=== PATIENT | female | born 1960 | race Caucasian/White ===

== ENCOUNTER → 2016-09-09 | Outpatient (CLI) | payer BC ==
[~2016-09-09] MED LIST: CITA10TA4 PO; IBUP-103 PO; MULTTAB58 PO
== END | disposition home or self-care (01) ==
LOC: C.PATHSPEC 15:56
PROVIDERS: ATTEND Obstetrics & Gynecology
DX: N85.8 Other specified noninflammatory disorders of uterus (principal)

== ENCOUNTER → 2016-11-08 | Outpatient (CLI) | payer BC | END | disposition home or self-care (01) | LOC: C.PAPS 14:45 | PROVIDERS: ATTEND Obstetrics & Gynecology | DX: Z01.419 Encounter for gynecological examination (general) (routine) without abnormal findings (principal); C50.919 Malignant neoplasm of unspecified site of unspecified female breast; Z79.810 Long term (current) use of selective estrogen receptor modulators (SERMs) ==

== ENCOUNTER → 2017-03-03 | Outpatient (CLI) | payer BC | END | disposition home or self-care (01) | LOC: C.PATHSPEC 11:19 | PROVIDERS: ATTEND Plastic Surgery | DX: D22.5 Melanocytic nevi of trunk (principal); L82.0 Inflamed seborrheic keratosis ==

== ENCOUNTER → 2017-04-27 | Outpatient (CLI) | payer BC ==
[2017-04-27 17:49] LABS: URINE APPEARANCE CLEAR (CLEAR); URINE BILIRUBIN NEG (NEG); URINE COLOR YELLOW; URINE EPITHELIAL CELL AUTO 20-30 /lpf (0-5); URINE NITRITE NEG (NEG); URINE PH 6.5 (4.5-7.5); URINE SPECIFIC GRAVITY 1.007 (1.000-1.030); UROBILINOGEN NEG (NEG)
[2017-04-27 17:58] LABS: MANUAL MICROSCOPIC REQUIRED? NO; REVIEW REQ? NO
== END | disposition home or self-care (01) ==
LOC: C.LABSPEC 17:19
PROVIDERS: ATTEND Physician Assistant Medical
DX: R39.9 Unspecified symptoms and signs involving the genitourinary system (principal)

== ENCOUNTER → 2017-05-12 | Outpatient (CLI) | payer BC ==
[~2017-05-12] MED LIST changes: +OPTIRAY 320 IV PRN
[2017-05-12 14:30] LABS: BASO % 0.7 %; BASO ABS # 0.03 K/uL (0-0.2); COMPLETE YES; EOS % 6.3 %; HEMATOCRIT 40.1 % (37-47); IG% 0.2 %; LYMPH % 17.7 %; LYMPH ABS # 0.78 K/uL (1.2-3.4); MEAN CELL VOLUME 87.9 fL (80-100); MEAN CORPUSCULAR HEMOGLOBIN 29.8 pg (25-34); MEAN CORPUSCULAR HGB CONC 33.9 g/dl (32-36); MEAN PLATELET VOLUME 10.2 fL (7.4-10.4); MONO % 10.7 %; NEUT % 64.4 %; PLATELET COUNT 205 K/uL (130-400); RED BLOOD COUNT 4.56 M/uL (4.2-5.4); WHITE BLOOD COUNT 4.41 K/uL (4.8-10.8)
[2017-05-12 14:56] LABS: ALB/GLOB RATIO 1.1 (0.9-2); ALKALINE PHOSPHATASE 43 U/L (45-117); ALT/SGPT 21 U/L (12-78); AST/SGOT 21 U/L (15-37); BLOOD UREA NITROGEN 10 mg/dl (7-18); BUN/CREATININE RATIO 15.8 (10-20); CALCIUM 8.4 mg/dl (8.5-10.1); CARBON DIOXIDE 27 mmol/L (21-32); CHLORIDE 109 mmol/L (98-107); CREATININE 0.64 mg/dl (0.60-1.20); GLUCOSE 82 mg/dl (70-99); POTASSIUM 3.7 mmol/L (3.5-5.1); SODIUM 142 mmol/L (136-145)
--- NOTE | 2017-05-12 16:48 | DIAGNOSTIC IMAGING REPORT ---
CT SCAN OF THE ABDOMEN AND PELVIS WITH IV CONTRAST CLINICAL HISTORY: Left lower quadrant abdominal pain. Lactase deficiency. Colonic diverticulosis. COMPARISON STUDY: Pelvic CT dated 02/11/2006. Abdominal ultrasound dated 01/25/2008. TECHNIQUE: Following the IV administration of 93 cc of Optiray 320, CT scan of the abdomen and pelvis is performed from the lung bases to the proximal femora. Images are reviewed in the axial, sagittal, and coronal planes. IV contrast was administered without complication. A dose lowering technique was utilized adhering to the principles of ALARA. CT DOSE: 386.33 mGycm FINDINGS: Lung bases: The heart is normal in size and without pericardial effusion. There is a calcified granuloma the right lung base. Dependent atelectasis is observed. The lung bases are otherwise clear. Liver: The contrast-enhanced liver is normal in size, contour, and attenuation. There is no intrahepatic biliary ductal dilatation. The hepatic veins and portal veins are patent. There is a 1.3 cm cyst in the right lobe of liver. Additional scattered subcentimeter hepatic hypodensities also likely represent cysts but are too small for definitive characterization. Gallbladder: Unremarkable. Spleen: Normal in size and attenuation. Pancreas: Unremarkable. Adrenal glands: Unremarkable. Kidneys: The contrast enhanced kidneys are normal in size and without hydronephrosis. The kidneys enhance symmetrically. Abdominal vasculature: The abdominal aorta is normal in course and caliber. Bowel: There is moderate colonic diverticulosis without CT evidence of acute diverticulitis. There is a 1.7 cm fat-containing lesion along the antimesenteric border of the descending colon seen on axial image #172 with surrounding inflammation the appearance is typical for epiploic appendagitis.. No bowel obstruction is seen. The appendix is well-visualized and normal. Peritoneum: There is no intraperitoneal free air or abdominal ascites. There is a small fat-containing umbilical hernia. Lymphadenopathy: None. Pelvic viscera: Uterine fibroids are suggested. Bilateral ovarian follicles are observed. The bladder is normal as visualized. Trace free fluid is seen in the cul-de-sac. Skeletal structures: The skeletal structures are osteopenic. There is mild lumbosacral spondylosis. No lytic or blastic lesions are seen. IMPRESSION: 1. Findings are consistent with epiploic appendagitis of the descending colon. 2. There is moderate colonic diverticulosis without CT evidence of acute diverticulitis. 3. The uterus appears enlarged and heterogeneous suggesting fibroids. This is similar in appearance to previous. 4. There are bilateral ovarian follicles identified as well as trace free fluid in the cul-de-sac. This is likely within physiologic limits; however, is an unusual finding in a 56 year old female. If the patient is premenopausal this is of doubtful significance. Pelvic ultrasound could be considered for further assessment if clinically warranted. 5. Additional findings as above. Electronically signed by: Sebastian Valdez M.D. 05/12/2017 4:47 PM Dictated Date/Time: 05/12/2017 4:36 PM
== END | disposition home or self-care (01) ==
LOC: C.CTS 14:03
PROVIDERS: ATTEND Internal Medicine
DX: E73.9 Lactose intolerance, unspecified (principal); K57.30 Diverticulosis of large intestine without perforation or abscess without bleeding; R51 Headache; R63.0 Anorexia; R10.32 Left lower quadrant pain; R10.824 Left lower quadrant rebound abdominal tenderness; R61 Generalized hyperhidrosis; K57.90 Diverticulosis of intestine, part unspecified, without perforation or abscess without bleeding; N85.2 Hypertrophy of uterus

== ENCOUNTER → 2017-05-17 | Outpatient (CLI) | payer BC ==
[~2017-05-17] MED LIST changes: -OPTIRAY 320 IV PRN
== END | disposition home or self-care (01) ==
LOC: C.PATHSPEC 16:48
PROVIDERS: ATTEND Dermatology
DX: L57.0 Actinic keratosis (principal); D22.71 Melanocytic nevi of right lower limb, including hip

== ENCOUNTER → 2017-06-29 | Outpatient (CLI) | payer BC | END | disposition home or self-care (01) | LOC: C.PATHSPEC 15:38 | PROVIDERS: ATTEND Obstetrics & Gynecology | DX: Z79.810 Long term (current) use of selective estrogen receptor modulators (SERMs) (principal) ==

== ENCOUNTER → 2017-08-17 | Day surgery (SDC) | payer BC, OTHER ==
[2017-07-21 14:55] VITALS: Ht 160 cm; Wt 61.4 kg
[~2017-08-17] VITALS: Ht 160 cm; Wt 61.4 kg
[~2017-08-17] MED LIST changes: +ANAS1TAB6 PO; +ATROPINE SULFATE 0.1 MG/ML 5ML SYR IV PRN; +CALCTAB5 PO; +DEXAMETHASONE SOD INJ 4 MG/ML VIAL ONE; +EpHEDrine SULFATE INJ 50 MG/ML AMP ONE; +FENTANYL CITRATE INJ 50 MCG/1 ML 2 ML VIAL IV PRN; +FENTANYL CITRATE INJ 50 MCG/1 ML 2 ML VIAL ONE; +IBUPROFEN 600 MG TAB PO PRN; +KETOROLAC TROMETHAMINE 30 MG/ML VIAL IV. PRN; +LACTATED RINGER'S 1000ML 1,000 ML IV SCH; +LIDOCAINE HCL 2% 2 ML VIAL (20MG/ML) ONE; +METOCLOPRAMIDE HCL INJ 5 MG/ML 2 ML VIAL IV PRN; +MIDAZOLAM HCL 1 MG/ML 2ML VIAL ONE; +ONDANSETRON INJ 2 MG/ML 2 ML VIAL IV PRN; +ONDANSETRON INJ 2 MG/ML 2 ML VIAL ONE; +OXYCODONE/ACETAMINOPHEN 5-325 TAB ONE; +OXYCODONE/ACETAMINOPHEN 5-325 TAB PO PRN; +PROPOFOL IV EMULSION 10 MG/ML 20 ML VIAL IV ONE; +SODIUM CHLORIDE 0.9% 1000ML 1,000 ML IV SCH; +SODIUM CHLORIDE 0.9% INJ 10 ML VIAL ONE
--- NOTE | 2017-08-17 11:49 | History & Physical Bridge - [place] ---
H&P Re-Evaluation Bridge Note: I have examined the patient, reviewed the History & Physical and in the interval since the performance of the History & Physical I have noted the following changes of clinical significance: No changes noted
--- NOTE | 2017-08-17 12:45 | [facility] Post Operative Brief Note ---
Immediate Operative Summary Operative Date Aug 17, 2017. Pre-Operative Diagnosis thickened endometrium, tamoxifen use Post-Operative Diagnosis same Procedure(s) Performed D&C Hysteroscopy, Myosure excision of intracavitary tissue Surgeon Dr Mitchell Train Brake Operator Surgeon(s) none Estimated Blood Loss 40 Findings See Below Cavity with multiple polypoid projections, some heavily calcified. Ostia s Specimens A)endometrial currettings with polyp Drains None Anesthesia Type General Complication(s) none Disposition Accompanied Pt To Recover: yes Disposition: Recovery Room / PACU
[2017-08-17 13:30] VITALS: TEMP 36.6
[2017-08-17 14:00] VITALS: BP 113/78; PULSE 81; O2SAT 94
--- NOTE | 2017-08-17 14:08 | Discharge Instructions-SurgCtr ---
Discharge Instructions Date of Service Aug 17, 2017. Visit Reason for Visit: Post Menopausal Bleeding Discharge Discharge Diagnosis / Problem: Thickened polypoid endometrium Discharge Goals Goal(s): Specific goals Activity Recommendations Activity Limitations: per Instructions/Follow-up section Anesthesia . Post Anesthesia Instructions: If you have had General Anesthesia or IV Sedation: * Do not drive today. * Resume driving when surgeon permits. * Do not make important decisions or sign legal documents today. * Call surgeon for: 1. Temperature elevations greater than 101 degrees F. 2. Uncontrollable pain. 3. Excessive bleeding. 4. Persistent nausea and vomiting. 5. Medication intolerance (nausea, vomiting or rash). * For nausea and vomiting use only clear liquids such as: tea, soda, bouillon until nausea subsides, then gradually increase diet as tolerated. * If you have any concerns or questions, call your surgeon's office. If physician is unavailable and it is an emergency, call 911 or go to the nearest emergency room. . Instructions / Follow-Up Instructions / Follow-Up ACTIVITY RECOMMENDATIONS: * Avoid tampons, douching, hot tubs, pools, and intercourse until bleeding has stopped. * May shower as usual. * No strenuous activity for 24-48 hours. After 24-48 hours, you may do anything you feel like doing (driving and sports are okay). SPECIAL CARE INSTRUCTIONS: Special Diet: * Mild nausea may occur in the immediate post-operative period. * Take clear liquids such as tea, cola or bouillon until all nausea has subsided; you may then resume your normal diet. Special Care: * Light bleeding and vaginal spotting can last from a few days to 3-4 weeks. Call your doctor if bleeding becomes heavier than the heaviest part of your period. * Check your temperature twice a day for one week. If it goes above 100.4 degrees Fahrenheit (38.0 Celsius), notify your doctor. * Call your doctor's office for an appointment for 6 weeks after your surgery. FOLLOW-UP VISIT: Call your doctor's office for an appointment for 6 weeks after your surgery. Diet Recommendations Home Diet: resume previous diet Procedures Procedures Performed: D&C Hysteroscopy, Myosure excision of intracavitary tissue Pending Studies Studies pending at discharge: no Medical Emergencies . Who to Call and When: Medical Emergencies: If at any time you feel your situation is an emergency, please call 911 immediately. . Non-Emergent Contact Non-Emergency issues call your: Primary Care Provider . . "Provider Documentation" section prepared by Fiath Mitchell. .
--- NOTE | 2017-08-17 14:17 | Anesthesia Progress Nt - [facility] ---
Anesthesia Post Op Note Date & Time Aug 17, 2017 at 14:17 Vital Signs Pain Intensity: 0 Vital Signs Past 12 Hours Date Time Temp Pulse Resp B/P (MAP) Pulse Ox O2 Delivery O2 Flow Rate FiO2 08/17/17 13:30 36.6 91 16 125/85 (98) 95 Room Air 08/17/17 13:23 83 11 08/17/17 13:23 81 11 97 08/17/17 13:22 72 11 99 08/17/17 13:22 72 11 08/17/17 13:21 36.9 100 Room Air 08/17/17 13:21 123/86 08/17/17 13:17 74 17 08/17/17 13:17 74 17 100 08/17/17 13:16 119/78 08/17/17 13:12 73 17 100 08/17/17 13:12 73 17 08/17/17 13:11 117/82 08/17/17 13:07 73 17 08/17/17 13:07 72 17 100 08/17/17 13:06 117/72 08/17/17 13:03 79 18 08/17/17 13:03 79 18 100 08/17/17 13:01 128/56 08/17/17 12:58 82 15 99 08/17/17 12:58 82 15 08/17/17 12:57 83 19 99 08/17/17 12:57 84 19 08/17/17 12:56 130/71 08/17/17 12:55 36.6 82 16 123/76 98 Mask 8 08/17/17 12:53 123/76 08/17/17 11:15 37.2 79 16 127/91 (103) 96 Room Air Notes Mental Status: alert / awake / arousable, participated in evaluation Pt Amnestic to Procedure: Yes Nausea / Vomiting: adequately controlled Pain: adequately controlled Airway Patency, RR, SpO2: stable & adequate BP & HR: stable & adequate Hydration State: stable & adequate Anesthetic Complications: no major complications apparent
--- NOTE | 2017-08-29 18:51 | OPERATIVE REPORT ---
DATE OF OPERATION: 08/17/2017 PREOPERATIVE DIAGNOSIS: Thickened endometrium on tamoxifen use. POSTOPERATIVE DIAGNOSIS: Same. PROCEDURE: D&C, hysteroscopy with MyoSure excision of intracavitary tissue. SURGEON: Dr. Mitchell. TOUR CONSULTANT: None. ESTIMATED BLOOD LOSS: 40 mL. FINDINGS: Cavity with multiple large polypoid projections, some heavily calcified ostia were seen bilaterally. SPECIMENS: Endometrial curettings with polyps. DRAINS: None. ANESTHESIA: General. COMPLICATIONS: None. DISPOSITION: Stable to PACU. DESCRIPTION: Nelsy is a 57-year-old female with known tamoxifen use and a heavily thickened endometrium. She was brought to the operating room, placed on the table in the dorsal lithotomy position, prepped and draped in standard sterile fashion and a hard time-out was taken prior to proceeding. Specula were introduced and the anterior lip of the cervix was grasped using a single-tooth tenaculum. Cervix was sounded and then dilated to allow passage of the hysteroscope. The hysteroscope was introduced and showed multiple very large polypoid projections from the stock of the uterus into the endometrial cavity. Ostia were able to be visualized after navigating beyond these large lumps of intracavitary tissue. The scope was withdrawn, polyp forceps were introduced and by grasping and pulling several large chunks greater than 1 cm in multiple dimensions were ultimately able to be retrieved from the uterus. Gentle curettage was then carried out. There was a particularly hard calcified projection that was resistant to removal with polyp forceps. For this reason, a MyoSure was then introduced to the cavity and was used to shave away this particular polypoid projection. Of note, there was so much calcium inside this structure that at one point the MyoSure blade jammed and the MyoSure instrument had to be exchanged for a new instrument. We were then able to continue resecting until the tissue was flushed with the normal uterine wall. Cavity having been restored to a normal shape, the procedure was brought to completion. All instruments were removed and the patient was transferred in stable condition to the PACU. I attest to the content of the Intraoperative Record and any orders documented therein. Any exception s are noted below.
== END | disposition home or self-care (01) ==
LOC: X.SURG 10:56
PROVIDERS: ATTEND Obstetrics & Gynecology
DX: F32.9 Major depressive disorder, single episode, unspecified (principal); Z85.3 Personal history of malignant neoplasm of breast; Z91.040 Latex allergy status; Z98.818 Other dental procedure status; Z98.890 Other specified postprocedural states; Z80.9 Family history of malignant neoplasm, unspecified; Z82.49 Family history of ischemic heart disease and other diseases of the circulatory system